=== PATIENT | male | born 1950 | race Caucasian/White ===

== ENCOUNTER → 2017-04-14 | Outpatient (CLI) | payer OTHER ==
[~2017-04-14] VITALS: Ht 175.3 cm; Wt 81.6 kg
[~2017-04-14] MED LIST: MULTIVITAMINS PO; NABUMETONE 500500 M1 PO; NORCO 7.5-3251 EACH PO; SINEMET 25-1001 EAC1 PO
--- NOTE | ~2017-04-14 | HPC ---
[facility] [place] [address] PAIN MANAGEMENT CONSULTATION Name: GRISEL MCCONNELL Room #: REG [facility] LeticiaJovannaBrianaJovanna#: [id number] Admission: 04/14/17 Attend Phys: Clint López DO Discharge: Date of : 50 Report #: [id number] THIS REPORT FOR: //name// CC: Alvarado Levy DO Clint López PAIN CLINIC CONSULT The patient is a very pleasant 66-year-old gentleman seen in consultation at the request of Dr. Levy for evaluation of pain primarily low back, bilateral legs. The patient notes he fell "a couple of years ago" with exacerbation of back pain. Pain has been present since 2014. Starting to get paresthesia in his lateral thighs down to his toes. He completed a course of physical therapy. He is continuing to do exercises at home. He is taking bzes-wmw-ujwthng anti-inflammatory medications (Motrin) with nominal relief. Recently started on hydrocodone with some efficacy, but notes pain remains steady, aching, rating it a 7-9 on a VAS. Notes pain is exacerbated whenever he moves from a vertical to horizontal position. REVIEW OF SYSTEMS: Complete review of systems attached to chart and was gone over with the patient. He is . He does not smoke, drink alcohol to excess. Showed remarkably good health. He takes multivitamins. He had a colon polyp removed in 1999. He was diagnosed with Parkinson's in September. He was started on Sinemet and that is really the only other medication he takes. 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 Pain impact score averages about 4.8 for all indices queried. PHYSICAL EXAMINATION: Reveals a 5 feet 9 inches, 180 pounds gentleman, BMI is 26.6 kilograms per meter squared. Blood pressure is 130/80, pulse 66, respirations 16. Cranial nerves 2-12 are grossly intact. Pupils are equal and reactive to light and accommodation. Extraocular muscles are intact. He does have a little parkinsonian tremor, which gets worse with intention. Has moderate thoracic kyphosis. Upper extremity strength is symmetric. Rises from chair using armrest. Gait is nominally ataxic. Lumbar flexion is limited to 45 degrees. Diffuse low back tenderness at L4-L5 area. Slight decreased left hip flexion and lower extremity extension strength compared to the right. Positive straight leg raise on the left at 30 degrees. Patellar and Achilles reflexes are generally preserved. Pain is somewhat exacerbated with rotation. Has some cogwheel rigidity in the lower extremities on straight leg raise testing. Skin integument is intact. DIAGNOSTIC STUDIES: Include MRI of the lumbar spine from 12/09/2016 noting left lateral HNP at L3-L4, small disk protrusion at L5-S1, the latter appears to be [address] [address] PAIN MANAGEMENT CONSULTATION Name: GRISEL MCCONNELL Room #: REG [facility]#: [id number] Admission: 04/14/17 Attend Phys: Clint López DO Discharge: Date of : 50 Report #: [id number] clinically inconsequential. ASSESSMENT: Symptomatic lumbar radiculopathy in a gentleman with recent diagnosis of Parkinson's. RECOMMENDATIONS: 1. Epidural injection at L3-L4 midline, will seek authorization for same. 2. We will start the patient on nabumetone 500 mg b.i.d. Thank you for allowing me to participate in the patient's care, we will seek authorization for epidural injection under fluoroscopy given failure of conservative therapy including lorw-bia-brsgyhj nonsteroidal anti-inflammatory medications, appropriate physical therapy (ongoing), diagnostic findings of neural tensioning correlating with left L3-L4 lateral annular tear. <ELECTRONICALLY SIGNED> By: Clint López DO 04/15/17 0657 1517 05 Clint Lpóez DO /nt
[2017-04-14 09:50] VITALS: BP 130/80
== END | disposition home or self-care (01) ==
LOC: PAIN 07:02
DX: M54.16 Radiculopathy, lumbar region (principal); G89.29 Other chronic pain; G20 Parkinson's disease; Z87.19 Personal history of other diseases of the digestive system; Z98.890 Other specified postprocedural states

== ENCOUNTER → 2017-04-22 | Outpatient (CLI) | payer OTHER ==
[~2017-04-22] VITALS: Ht 175.3 cm; Wt 79.1 kg
--- NOTE | ~2017-04-22 | HPC ---
[facility] [address] [facility] [place] [address] PAIN MANAGEMENT CONSULTATION Name: GRISEL MCCONNELL [facility] [id number] Admission: 04/22/17 Attend Phys: Clint López DO Discharge: Date of : 50 Report #: [id number] THIS REPORT FOR: //name// CC: Alvarado López The patient is a pleasant 66-year-old gentleman, prior seen in consultation on 04/14/2017, diagnosed with symptomatic lumbar radiculopathy. The patient was started on meloxicam 7.5 mg b.i.d. We sought authorization for epidural injection under fluoroscopy. He reports to the pain clinic today for that injection. He notes pain continues at 6 on a VAS, primarily mid back, bilateral legs. ASSESSMENT: Symptomatic lumbar radiculopathy. PROCEDURE: Lumbar epidural injection under fluoroscopy. PROCEDURE NOTE: After both written and informed consent to include risk of spinal cord damage, increased pain, weakness and dural puncture, the patient was taken to the fluoroscopy suite, placed in the prone position. After sterile prep and drape, a skin wheal with lidocaine was raised. A 22-gauge epidural Tuohy needle was inserted in the midline at L3-L4 with good loss to resistance. Negative aspiration for cerebrospinal fluid or blood was noted. Then 1 mL of Omnipaque under biplanar fluoroscopy showed good spread within the epidural space. This was followed with 80 mg of triamcinolone plus 1 mL of 1.5% preservative-free Xylocaine, 0.5 mL Xylocaine was then injected to flush the needle; it was removed. The patient was monitored for an appropriate period of time and discharged in good and stable condition. <ELECTRONICALLY SIGNED> By: Clint López DO 04/25/17 0742 1150 1339 Clint López DO /nt
[2017-04-22 14:20] VITALS: BP 145/93
== END ==
LOC: PAIN 07:17
DX: M54.16 Radiculopathy, lumbar region (principal)

== ENCOUNTER → 2017-05-26 | Outpatient (CLI) | payer OTHER ==
[~2017-05-26] VITALS: Ht 175.3 cm; Wt 75.8 kg
[~2017-05-26] MED LIST changes: +PROSCAR 5MG TABL5 MG PO
--- NOTE | ~2017-05-26 | HPC ---
[facility] [place] [address] PAIN MANAGEMENT CONSULTATION Name: GRISEL MCCONNELL Room #: REG [facility]#: [id number] Admission: 05/26/17 Attend Phys: Clint López DO Discharge: Date of : 50 Report #: [id number] THIS REPORT FOR: //name// CC: Alvarado López HISTORY OF PRESENT ILLNESS: The patient was a very pleasant 66-year-old gentleman being treated for symptomatic lumbar radiculopathy, his comorbidity of Parkinson's disease. Last seen in pain clinic on 05/12/2017. We had given him a single epidural injection on 04/22/2017. The patient notes 60% overall ongoing improvement of pain, but still has pain that interferes with function. He rates the pain 2-3 on a VAS, exacerbated with standing and walking. To his credit, he continues to do physical therapy. PHYSICAL EXAMINATION: Does show a 66-year-old gentleman, BMI is 24.9 kilograms per meter squared. Vital signs are stable as noted on the EMR with modest hypertension at 147/93. Rises from chair using armrest, modestly antalgic gait. Right hip flexion is diminished in strength compared to the left, about 3/5 versus 4/5. Lumbar flexion is limited to 80 degrees. He does have a minimally antalgic gait. Patellar reflex is diminished on the right compared to the left. Straight leg raise is nominally positive on the right as well. ASSESSMENT AND RECOMMENDATION: 1. The patient incidentally notes that he is having trouble sleeping, though on further questioning it appears that it is not because of pain or anxiety, he simply wakes up to urinate. He usually did that 1 time a night, he has starting to do this 3-4 times a night. He has no history of diabetes, we do know that steroid injections can increase blood sugar in patients who do have some glucose intolerance. I think this is simply a manifestation of some benign prostatic hypertrophy, appropriate for age at 66. I told him I will trial a 30-day course of finasteride at 5 mg nightly. If this affords some improvement in his nocturia and when he completes the course in 30 days if he notes return of nocturia, I will ask him to follow up with Dr. Alvarado Levy for consideration for continuing the finasteride and likely further evaluation into prostate anatomy. Prescription generated for finasteride as noted above. I also did take the liberty of renewing nabumetone 5 mg b.i.d., 60 tablets, 1 refill and a short course of hydrocodone for pain, 7.5 mg 1 tablet 2-3 times a day as needed for pain, limit 45 tablets. Thank you for allowing me to participate in the patient's care. I will keep you abreast of his progress. 2. Acute exacerbation of lumbar radiculopathy with incremental improvement following one epidural injection. Recommendation: Repeat epidural injection [address] [address] PAIN MANAGEMENT CONSULTATION Name: JAYESHGRISEL Room #: REG [facility]#: [id number] Admission: 05/26/17 Attend Phys: Clint López DO Discharge: Date of : 50 Report #: [id number] under fluoroscopy today. PROCEDURE: Lumbar epidural injection under fluoroscopy. PROCEDURE: Lumbar epidural steroid injection. PROCEDURE NOTE: After both written and informed consent to include risk of spinal cord damage, increased pain, weakness and dural puncture, the patient was taken to the fluoroscopy suite, placed in the prone position. After sterile prep and drape, a skin wheal with lidocaine was raised. A 22-gauge epidural Tuohy needle was inserted in the midline at L3-L4 with good loss to resistance. Negative aspiration for cerebrospinal fluid or blood was noted. Then 1 mL of Omnipaque under biplanar fluoroscopy showed good spread within the epidural space. This was followed with 80 mg of triamcinolone plus 1 mL of 1.5% preservative-free Xylocaine, 0.5 mL Xylocaine was then injected to flush the needle; it was removed. The patient was monitored for an appropriate period of time and discharged in good and stable condition. <ELECTRONICALLY SIGNED> By: Clint López DO 05/30/17 1401 1250 2133 Clint López DO /nt
[2017-05-26 11:05] VITALS: BP 133/88
== END ==
LOC: PAIN 07:14
DX: M54.16 Radiculopathy, lumbar region (principal); G20 Parkinson's disease; I10 Essential (primary) hypertension

== ENCOUNTER → 2017-09-30 | Outpatient (CLI) | payer OTHER ==
[~2017-09-30] VITALS: Ht 175.3 cm; Wt 74.8 kg
[~2017-09-30] MED LIST changes: +CALCIUM 500 +1 EAC5 PO; +CIALIS5 MG PO; +SLEEP AID50 MG PO; +STOOL SOFTENER100 M1 PO; +VITAMIN C500 M1 PO; +VITAMIN E400 UNIT PO
--- NOTE | ~2017-09-30 | P ---
[facility] [place] [address] [place] [address] PROCEDURE REPORT Name: GRISEL MCCONNELL Room #: REG [facility]#: [id number] Admission: 09/30/17 Attend Phys: Carrington Fuller Discharge: Date of : 50 Report #: [id number] THIS REPORT FOR: //name// CC: Carrington Levy DO DATE OF SERVICE: 09/30/2017 PROCEDURE PERFORMED: Colonoscopy with polypectomies. HISTORY OF PRESENT ILLNESS: The patient is a 67-year-old male who apparently had colon polyps in the past. Last colonoscopy reportedly was 5 years ago and negative. He denies any symptoms. No family history of colon cancer. DESCRIPTION OF PROCEDURE: The risks and benefits of the procedure were explained to the patient, those risks including but not limited to bleeding, perforation, and the risk of sedation. He understood these risks and gave informed consent. Sedation was given using propofol per anesthesia. Next, a digital rectal exam was initially performed, which was normal. Next, using a standard Fujinon colonoscope, the scope was placed in the patient's anus and advanced under direct vision to the cecum. The overall prep was good in the cecum. There was a 6-mm sessile polyp. This was removed by snare cautery, otherwise normal. The ileocecal valve was normal. Ascending, transverse, descending and sigmoid colon were all normal. The rectal mucosa was normal. On retroflexion, no abnormalities were noted. The scope was then withdrawn and the procedure terminated. The patient tolerated the procedure well. IMPRESSION: 1. Cecal polyp. 2. Otherwise, normal colonoscopy. RECOMMENDATIONS: 1. Await biopsy results. 2. Repeat colonoscopy in 5 years. Thank you for allowing me to participate in his care. <ELECTRONICALLY SIGNED> By: Carrington Murray MD 10/07/17 0804 1041 1138 Carrington Murray MD /nt
--- NOTE | ~2017-09-30 | S ---
[facility] [place] [address] SURGICAL PATH RPT PROCEDURE Name: GRISEL CASTRO Room #: REG [facility] LeticiaAaliyah.#: [id number] Admission: 09/30/17 Date of : 50 Discharge: Report #: [id number] Path Case #: [id number] PATHOLOGY REPORT COLLECTION DATE: 09/30/2017 RECEIVED DATE: 09/30/2017 SUBMITTING PHYS: Dr. Carrington Murray OTHER PHYS: Dr. Alvarado Levy SPECIMEN(S) RECEIVED: A.Cecal polyp * * * * * * * * * * * * FINAL DIAGNOSIS: "Cecal polyp," biopsy: - Tubular adenoma; no high-grade dysplasia. (CLW:mgr; 10/03/2017) PATHOLOGIST: Lisa Baptiste M.D. REPORT ELECTRONICALLY SIGNED BY: Lisa Baptiste M.D. DATE/TIME: 10/03/2017 15:57 * * * * * * * * * * * * GROSS PATHOLOGY: Received in formalin labeled "Grisel Castro, cecal polypectomy," are two segments of lyman soft tissue measuring 1.0 x 0.9 x 0.4 cm in aggregate dimensions and ranging from 0.5 to 0.9 cm in maximum dimension. The specimen is submitted entirely in cassette A1. (CAA; 09/30/2017) CLINICAL HISTORY: History of colon polyps INITIAL CPT CODE(S): A; 93158 Professional services performed by [facility] at [facility] [address]ST[address]mar[address] DinhJovanna, [place] [address] Technical services performed by [facility] at [address] [place] [address], [address], [place] [address]. [facility] [address] [place] [address] SURGICAL PATH RPT PROCEDURE Name: GRISEL CASTRO Room #: REG [facility]#: [id number] Admission: 09/30/17 Date of : 50 Discharge: Report #: [id number] Path Case #: [id number] [address] PHONE: [phone] DIRECTOR: Kingston Courtney M.D. * * * END OF REPORT * * *
== END | disposition home or self-care (01) ==
LOC: GI 07:56
DX: Z09 Encounter for follow-up examination after completed treatment for conditions other than malignant neoplasm (principal); Z86.010 Personal history of colon polyps; D12.0 Benign neoplasm of cecum; G20 Parkinson's disease; Z87.891 Personal history of nicotine dependence; Z98.890 Other specified postprocedural states; Z79.891 Long term (current) use of opiate analgesic
CPT/HCPCS: 62110; 62900

== ENCOUNTER → 2017-11-17 | Outpatient (CLI) | payer OTHER ==
[~2017-11-17] VITALS: Ht 175.3 cm; Wt 77.5 kg
--- NOTE | ~2017-11-17 | HPC ---
[address] [address] PAIN MANAGEMENT CONSULTATION Name: GRISEL MCCONNELL [facility] #: [facility] [id number] Admission: 11/17/17 Attend Phys: Clint López DO Discharge: Date of : 50 Report #: [id number] THIS REPORT FOR: //name// CC: Alvarado López DATE OF SERVICE: 11/17/2017 The patient is a 67-year-old gentleman, prior seen in the Pain Clinic on 11/07/2017. The patient was diagnosed with symptomatic lumbar spondylosis without myelopathy, lumbosacral spondylosis without myelopathy. We sought authorization for bilateral L4-L5, L5-S1 facet joint injection under fluoroscopy. The patient returns to the Pain Clinic today for facet injection, has ongoing pain in the low back at the level of the iliac crest and below. Pain is exacerbated by side bending and rotation. Rates subjective pain score 4 on a VAS. ASSESSMENT: Symptomatic lumbar spondylosis without myelopathy, lumbosacral spondylosis without myelopathy. PROCEDURE: Bilateral L4-L5 and L5-S1 facet joint injections. PROCEDURE NOTE: After written informed consent was obtained, the patient was taken to the fluoroscopy suite and placed in prone position. After sterile prep and drape, skin wheal was raised. A 22-gauge stylet needle was placed to contact the inferior aspect of the left L4-L5 and left L5-S1 facet joint. AP and lateral projections showed good needle placement. A 20 mg triamcinolone plus 1 mL of 0.5% preservative-free bupivacaine was injected at each site. Needle was removed. C-arm was turned obliquely to the right and procedure was repeated in a mirror fashion. After all four needles removed, patient was allowed to ambulate to recovery room, monitored for an appropriate period of time. Fluoroscopy time was approximately 13 seconds. The patient monitored for an appropriate period of time, discharged in good and stable condition. Please note the pain was absent on discharge. Follow up in 2 weeks to evaluate efficacy. If he has short term relief, we will consider medial branch dorsal rami diagnostic block in consideration of RFL of same (L3, L4, L5 medial branch dorsal rami respectively). <ELECTRONICALLY SIGNED> By: Clint López DO 11/21/17 0711 1230 2140 Clint López DO /nt
[2017-11-17 09:41] VITALS: BP 127/83
== END | disposition home or self-care (01) ==
LOC: PAIN 05:36
DX: M47.816 Spondylosis without myelopathy or radiculopathy, lumbar region (principal); M47.817 Spondylosis without myelopathy or radiculopathy, lumbosacral region; G89.29 Other chronic pain; Z87.891 Personal history of nicotine dependence; Z79.891 Long term (current) use of opiate analgesic

== ENCOUNTER → 2018-08-07 | Outpatient (CLI) | payer OTHER | LOC: MRI 09:26 | DX: M47.817 Spondylosis without myelopathy or radiculopathy, lumbosacral region (principal); M51.27 Other intervertebral disc displacement, lumbosacral region; M51.37 Other intervertebral disc degeneration, lumbosacral region; M48.061 Spinal stenosis, lumbar region without neurogenic claudication; N28.1 Cyst of kidney, acquired; R60.0 Localized edema ==

== ENCOUNTER → 2018-09-06 | Outpatient (CLI) | payer OTHER ==
[~2018-09-06] VITALS: Ht 175.3 cm; Wt 74.6 kg
[~2018-09-06] MED LIST changes: +ASPIR 8181 MG PO; -CALCIUM 500 +1 EAC5 PO; +CALCIUM PO; +COLACE100 MG PO; +UNISOM50 MG PO
--- NOTE | ~2018-09-06 | HPC ---
[facility] [place] [address] PAIN MANAGEMENT CONSULTATION Name: GRISEL MCCONNELL Room #: REG [facility]#: [id number] Admission: 09/06/18 ������������������ Attend Phys: Leroy Mccray MD Discharge: ������������������ Date of : 50 Report #: [id number] THIS REPORT FOR: //name// CC: Alvarado Mccray DATE OF SERVICE: 09/06/2018 CHIEF COMPLAINT: Pain in the back. FOLLOWUP HISTORY: The patient is a 68-year-old gentleman who has been followed in the pain clinic by Leelee López. This is my first visit with the patient. He returns today with complaint of pain and discomfort in his low back area. He does have a history of Parkinson's disease. Rates his pain as a 3/10. It involves his low back. He describes it as aching. Pain is exacerbated with getting up from a chair. Standing for a prolonged period of time is in one place is problematic. Has used medications as well as heat. He finds that hydrocodone has been helpful. Has used nonsteroidal anti-inflammatory medications. Has found that epidural steroid injections in the past have been beneficial. He has spondylosis of the lumbar spine. Pain is exacerbated by bending and rotation. Has noted a 60% improvement with in the back after epidural steroid injections. ALLERGIES: No known drug allergies. MEDICATIONS: Diphenhydramine 50 mg at bedtime, Colace 100 mg, hydrocodone 7.5/325 one p.o. every 6 hours p.r.n., Sinemet 25/100 t.i.d., aspirin 81 mg, vitamin C 500 mg, calcium 750 mg, vitamin E 400 units, multivitamin. PAST MEDICAL HISTORY: Parkinson's diagnosed about a year and a half ago, colon polyps. PAST SURGICAL HISTORY: Colonoscopies in 2012 and 2007. 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 REVIEW OF SYSTEMS: Generally good health, recent weight loss, decreased appetite, wears glasses, numbness and tingling, tremors, memory loss, confusion. LABORATORY DATA: MRI dated on 08/07/2018: 1. L2-L3, there is progressive degenerative disks loss in vertebral body endplate degenerative changes. Moderate bilateral posterior facet degenerative changes are present without significant spinal canal stenosis or neural foraminal narrowing. 2. L3-L4, there is a generalized disk bulge, which is slightly more eccentric [address] [address] PAIN MANAGEMENT CONSULTATION Name: JAYESHGRISEL [facility] [id number] Admission: 09/06/18 ������������������ Attend Phys: Leroy Mccray MD Discharge: ������������������ Date of : 50 Report #: [id number] toward the right. This appears very similar to the prior study. There is mild right lateral recess narrowing; however, no significant central canal stenosis or definite neural foraminal narrowing. 3. L4-L5, there is interval development of an acute right-sided L4 inferior plates Schmorl node with surrounding edema. No central spinal stenosis or neural foraminal narrowing. Moderate posterior facet degenerative changes. 4. L5-S1, there is a broad-based central disk protrusion with moderate bilateral posterior facet degenerative changes without significant spinal stenosis or neural foraminal narrowing. This is similar to the prior study. IMPRESSION: There has been progressive of disease at the L2-L3 and L4-L5 levels. PAIN CLINIC ASSESSMENT/PQRS: 1. History of osteoarthritis. The patient has some arthritic changes in his knees as well as in the lower spine. He has not been treated for rheumatoid arthritis. 2. Height 5 feet 9 inches. Weight 166 pounds, BMI is 24.5. 3. Vital signs: Blood pressure 123/78, pulse 55, respiratory rate 16, room air saturation is 98%. Pain intensity 3/10. 4. Fall risk. The patient has not fallen in the last 3 months. 5. Blood thinner. The patient is not on a blood thinning medication. 6. Hypertension. The patient has not been treated for hypertension. 7. Opioid greater than 6 weeks. The patient received opioid medications from his primary physician. 8. Risk assessment tool, low for opioid use, 0/3. 9. Functional assessment tool . 10. Recreational drug use: The patient denies. 11. Tobacco: The patient is a former smoker, has not smoked for many years. 12. Alcohol: The patient drinks alcoholic beverages 1-2 alcoholic beverages per week. PHYSICAL EXAMINATION: GENERAL: The patient is a well-developed, well-nourished white male. Appears his stated age. He is alert and oriented x 3. His affect is appropriate, somewhat stoic appearing. Findings consistent with Parkinson's history. NECK: Without bruits. CHEST: Clear to auscultation. HEART: Regular rate. ABDOMEN: Nontender. EXTREMITIES: Upper extremity muscle strength is judged to be 4+/5 for the major muscle groups in the upper extremity. The patient without significant scoliosis, kyphosis or lordosis. Complains of pain and discomfort in the mid portion of his back with some pain radiating down into the sacral area. The patient has had a history of lumbar radicular pain in the past and improved with epidural steroid injections. Lower extremity muscle strength is judged to be [address] [address] PAIN MANAGEMENT CONSULTATION Name: GRISEL MCCONNELL Room #: REG [facility]#: [id number] Admission: 09/06/18 ������������������ Attend Phys: Leroy Mccray MD Discharge: ������������������ Date of : 50 Report #: [id number] 5-/5 for the major muscle groups. The patient moves slow with a guarded franny. Movement consistent with parkinsonian history. The patient uses hands go from a sitting to a standing position. Ambulates slowly. IMPRESSION: Chronic low back pain with history of lumbar radicular pain. Parkinson's diagnosed about a year and a half ago, colon polyps. RECOMMENDATIONS: We discussed treatment options with the patient. The patient has had a history of back pain. He has undergone physical therapy for 2 months. Pain continued. He has undergone facet joint injections with benefit. He has undergone epidural steroid injections with benefit. Notes increased pain when going from a sitting to a standing position. Moves slowly and with findings consistent with parkinsonian disease. We reviewed the patient's MRI with him in detail. A model was used to indicate the area of probable pathology. The patient states that he understands. The patient has pain in the back area. We will proceed with an epidural steroid injection in the L2-L3 area. This is an area where the patient does complain of some pain and discomfort as well as history of lumbar radicular pain. PROCEDURE NOTE: The patient was taken to the procedure area. He assisted in getting on the examination table. A pillow was placed under his abdomen. Fluoroscopy using anterior, posterior as well as lateral viewing were implemented. At the L2-L3 area, 0.25% bupivacaine was infiltrated. A 17-gauge Tuohy with loss of resistance technique was used to gain access to the epidural space. There was no CSF, heme or paresthesia. A total of 80 mg Depo-Medrol, 40 mg triamcinolone and 2 mL of 0.25% bupivacaine was injected. Total of 10 mL fluoroscopy time was used. The patient remained in the pain clinic for an appropriate amount of time. He will follow up in the future as needed. We would like to thank you for letting us to participate in his care. We hope he continues to improve. ��������������������������������������������� ���������������������������������������� By: ��������������������������������������������� 1523 1802 Leroy Mccray MD /MISTY
[2018-09-06 10:41] VITALS: BP 128/78
--- NOTE | 2018-09-06 11:05 | NUR ---
Pain Clinic Assessment: 1. History of Osteoarthritis: SPINE KNEES History of Rheumatoid Arthritis: Not Applicable 2. Height: 5 ft. 9 in. 175.3 cm. Weight: 164.4 lb. oz. 74.571 kg. Patient's BMI: 24.3 3. Vital Signs: BP: 128/78 Pulse: 60 Resp: 14 Temp: 02 Sat: 99 ECG Mon: 4. Pain Intensity: 3 NOW 8 GET OUT OF CAR 5. Fall Risk: Dizziness: N Needs help standing or walking: N Fallen in the last 3 months: N Fall risk comments: 6. Patient on Blood Thinner: None 7. History of Hypertension: N 8. Opioid Therapy greater than 6 weeks: N Opiate Contract Signed: 9. Risk Assessment Tool Provided: LOW RISK 0/3 10. Functional Assessment Tool: 11. Recreational Drug Use: Never Drug Type: Tobacco Use: Former Smoker Tobacco Type: Amount or Packs/day: How Many Years: Alcohol Use: Yes Frequency: Quant:
== END | disposition home or self-care (01) ==
LOC: PAIN 08-30 07:45
DX: M54.16 Radiculopathy, lumbar region (principal); G89.29 Other chronic pain; G20 Parkinson's disease; Z86.010 Personal history of colon polyps; Z79.891 Long term (current) use of opiate analgesic; Z79.82 Long term (current) use of aspirin; Z87.891 Personal history of nicotine dependence; Z87.19 Personal history of other diseases of the digestive system; Z98.890 Other specified postprocedural states

== ENCOUNTER → 2019-01-19 | Outpatient (CLI) | payer OTHER ==
[~2019-01-19] VITALS: Ht 175.3 cm; Wt 70.8 kg
--- NOTE | ~2019-01-19 | HPC ---
[facility] [place] [address] PAIN MANAGEMENT CONSULTATION Name: GRISEL MCCONNELL Room #: REG ORI DudleyJovanna#: [id number] Admission: 01/19/19 ������������������ Attend Phys: Leroy Mccray MD Discharge: ������������������ Date of : 50 Report #: [id number] THIS REPORT FOR: //name// CC: Alvarado Mccray DATE OF SERVICE: 01/19/2019 CHIEF COMPLAINT: Back pain. FOLLOWUP HISTORY: The patient is a 68-year-old gentleman who has been followed in the pain clinic by Dr. Clint López. This is my first time seeing the gentleman. He has been seen in the past because of lumbosacral and spondylosis without myelopathy. He has in the past undergone bilateral L4-L5 and L5-S1 facet joint injections. He has had chronic pain since 2014. Notes that oftentimes his pain is in the upper back area. Describes as steady, aching. Notes some increased pain with motion and activity. After his fall in 2014, he completed a course of physical therapy. States that he continues to do exercises at home. Has used [id number] nonsteroidal anti-inflammatory medications. ALLERGIES: No known drug allergies. PAST MEDICAL HISTORY: Colon problems. PAST SURGICAL HISTORY: Colonoscopies 2012 and 2007, Parkinson's disease 09/2016. SOCIAL HISTORY: He is a retired college advisor. He is not working at this juncture, he retired in 06/2009. REVIEW OF SYSTEMS: Weight change, fevers, fatigue, weakness, wears glasses, loss of appetite, constipation, numbness and tingling sensation, tremors, memory loss, confusion. LABORATORY DATA: MRI of the lumbar spine dated 08/07/2018: 1. L2-L3, there is progressive degenerative disk space loss in vertebral body endplate degenerative changes. Moderate bilateral posterior facet degenerative changes are present without significant central spinal stenosis or neural foraminal narrowing. 2. L3-L4, there is a generalized disk bulge, which is slightly more eccentric toward the right. This appears very similar to the prior study. There is mild right lateral recess narrowing; however, no significant central spinal stenosis or definitive foraminal narrowing. 3. At L4-L5, there has been interval development of an acute right-sided left inferior plate Schmorl node with surrounding edema. No central spinal stenosis [address] [address] PAIN MANAGEMENT CONSULTATION Name: JAYESHGRISEL Room #: REG [facility] Nahun#: [id number] Admission: 01/19/19 ������������������ Attend Phys: Leroy Mccray MD Discharge: ������������������ Date of : 50 Report #: [id number] or neural foraminal narrowing. Moderate posterior facet degenerative change. 4. At L5-S1, there is a broad-based disk central protrusion with moderate bilateral posterior facet degenerative changes without central spinal stenosis or neural foraminal narrowing. This is similar to prior study. PAIN CLINIC ASSESSMENT AND PQRS: 1. History of osteoarthritis. This involves his spine and knees. He has not been treated for rheumatoid arthritis. 2. Height 5 feet 9 inches, weight 156 pounds, BMI is 23. 3. VITAL SIGNS: Blood pressure 128/83, pulse 63, respiratory rate 16, room air saturation is 100%. Pain intensity 7/10. 4. Fall history: The patient has not fallen in the last 3 months. 5. Blood thinner. He is not on a blood thinning medication. 6. Hypertension. The patient has not been treated for hypertension. 7. Opioids greater than 6 weeks. The patient is not receiving opioid medications on a regular basis. 8. Risk assessment low for opioid use. 9. Functional assessment tool . 10. Recreational drug use. The patient denies use of recreational drugs. 11. Tobacco: The patient has never smoked. 12. Alcohol. The patient drinks 2-3 alcoholic beverages weekly. PHYSICAL EXAMINATION: GENERAL: The patient is a well-developed, well-nourished white male. Appears his stated age. He is alert and oriented x 3. He is somewhat lacking expression. This is consistent with a parkinsonian facies. NECK: Without adenopathy or JVD. The patient does complain of pain and discomfort in the rhomboid areas on his right side. Palpation at the T3-T4 area and T4-T5 does reproduce pain and discomfort similar to that which he is complaining of today. HEART: Regular rate. ABDOMEN: Nontender. Bowel sounds are present. EXTREMITIES: Upper extremity muscle strength is judged to be 4+/5 for the major muscle groups in the upper extremity. The patient is without significant scoliosis or lordosis. He has a significant amount of kyphosis. Lower extremity muscle strength is judged to be 4+/5 for the major muscle groups of the lower extremity. The patient walks in a slow and somewhat unsteady gait. IMPRESSION: 1. Myofascial pain involving the mid back area. 2. Colon problems. RECOMMENDATIONS: We discussed treatment options with the patient. In the past, he has undergone trigger point injections and found them beneficial. Palpation in the upper back area near the T3, T4, T5 areas do reproduce the pain and discomfort for which he is complaining. We have discussed the risks and [address] [address] PAIN MANAGEMENT CONSULTATION Name: GRISEL MCCONNELL [facility] [id number] Admission: 01/19/19 ������������������ Attend Phys: Leroy Mccray MD Discharge: ������������������ Date of : 50 Report #: [id number] benefits of trigger point injections. Trigger points in the upper thoracic area can cause a pneumothorax, possibility of bleeding, worsening of pain, no improvement in pain. We explained to the patient on pneumothorax require him to be hospitalized with chest tubes for 5 to 7 days. The patient elects to proceed. PROCEDURE NOTE: The patient was placed in the sitting position perpendicular to the bed. A chair was placed under his feet. His back was sterilely prepped with a chlorhexidine solution and allowed to dry. At the T3 interspace, a 25-gauge needle was advanced into the interspinous area. The patient states this did reproduce a component of his pain. Aspiration was negative. A total of 5 mL of 0.5% bupivacaine and 40 mg of triamcinolone was injected. The patient states that this decrease the pain and discomfort in this area. The patient had a second trigger point in the left T4-5 area near the rhomboids. Palpation of the rhomboid area reproduces discomfort. After the trigger point in the rhomboid was noted on the left side, a 25-gauge needle was then advanced into the area. Aspiration did not reveal bubbles. A total of 5 mL of 0.5% bupivacaine and 40 mg of triamcinolone was injected in the second area. The patient tolerated the 2 trigger points well. Pain decreased to 0 at the time of discharge. He will follow up in the future as needed. We would like to thank you for letting us participate in his care. We hope he continues to improve. ��������������������������������������������� ���������������������������������������� By: ��������������������������������������������� [id number] Leroy Mccray MD /PMT
[2019-01-19 08:47] VITALS: BP 128/83
--- NOTE | 2019-01-19 09:00 | NUR ---
Pain Clinic Assessment: 1. History of Osteoarthritis: SPINE KNEES History of Rheumatoid Arthritis: Not Applicable 2. Height: 5 ft. 9 in. 175.3 cm. Weight: 156.0 lb. oz. 70.761 kg. Patient's BMI: 23.0 3. Vital Signs: BP: 128/83 Pulse: 62 Resp: 16 Temp: 02 Sat: 100 ECG Mon: 4. Pain Intensity: 7 5. Fall Risk: Dizziness: N Needs help standing or walking: N Fallen in the last 3 months: N Fall risk comments: 6. Patient on Blood Thinner: None 7. History of Hypertension: N 8. Opioid Therapy greater than 6 weeks: N Opiate Contract Signed: 9. Risk Assessment Tool Provided: LOW RISK 0/3 10. Functional Assessment Tool: 11. Recreational Drug Use: Never Drug Type: Tobacco Use: Never Smoker Tobacco Type: Amount or Packs/day: How Many Years: Alcohol Use: Yes Frequency: Weekly Quant: 2-3
== END | disposition home or self-care (01) ==
LOC: PAIN 06:41
DX: M79.18 Myalgia, other site (principal); G89.29 Other chronic pain; G20 Parkinson's disease; Z98.890 Other specified postprocedural states

== ENCOUNTER → 2019-10-05 | Outpatient (CLI) | payer OTHER ==
[~2019-10-05] VITALS: Ht 175.3 cm; Wt 70.3 kg
[~2019-10-05] MED LIST changes: +ARICEPT10 M1 PO; +MEDROLDOSEPACK PO; +PERCOCET 5-3251 EACH PO; +RASAGILINE MES0.5 MG PO; +VOLTAREN GEL 1100 G1 TOP
[2019-10-05 12:48] VITALS: BP 129/79
--- NOTE | 2019-10-05 13:01 | NUR ---
Pain Clinic Assessment: 1. History of Osteoarthritis: SPINE KNEES History of Rheumatoid Arthritis: Not Applicable 2. Height: 5 ft. 9 in. 175.3 cm. Weight: 155.0 lb. oz. 70.308 kg. Patient's BMI: 22.9 3. Vital Signs: BP: 129/79 Pulse: 62 Resp: 16 Temp: 02 Sat: 100 ECG Mon: 4. Pain Intensity: 7 5. Fall Risk: Dizziness: N Needs help standing or walking: N Fallen in the last 3 months: N Fall risk comments: 6. Patient on Blood Thinner: None 7. History of Hypertension: N 8. Opioid Therapy greater than 6 weeks: Y Opiate Contract Signed: 9. Risk Assessment Tool Provided: LOW RISK 0/3 10. Functional Assessment Tool: 11. Recreational Drug Use: Never Drug Type: Tobacco Use: Never Smoker Tobacco Type: Amount or Packs/day: How Many Years: Alcohol Use: Yes Frequency: Special Occasions Quant: 1
--- NOTE | 2019-10-24 15:15 | HPC ---
[facility] [place] [address] PAIN MANAGEMENT CONSULTATION Name: GRISEL MCCONNELL Room #: REG [facility] Octavia#: [id number] Admission: 10/05/19 Attend Phys: Leroy Mccray MD Discharge: Date of : 50 Report #: [id number] THIS REPORT FOR: cc: Alvarado Levy,Leroy Chang MD ~ CC: Alvarado Mccray DATE OF SERVICE: 10/22/2019 CHIEF COMPLAINT: Pain in the neck between the shoulder blades and down on the right side of the ribs. HISTORY: The patient is a 69-year-old gentleman who has been seen in the pain clinic in the past because of chronic pain in the low back area. He has had pain and discomfort in the lumbosacral area. He suffers from spondylosis. He has undergone epidural steroid injections in the L4-L5 and L5-S1 facet areas. He has been experiencing chronic pain since 2015. He returns to the pain clinic today with pain in the upper back area. He has been experiencing pain between his shoulder blades. He complains of some pain that radiates down and around to the front of his right side in the rib area and in the area of his waistline. He denies any new trauma. He describes the pain as a 7/10. It is exacerbated with coughing, sneezing and certain movements. It can be reproduced somewhat with deep breathing. ALLERGIES: No known drug allergies. CURRENT MEDICATIONS: Rasagiline 0.5 mg, Aricept 10 mg, Colace 200 mg at bedtime, hydrocodone 7.5 mg, carbidopa/levodopa 25/100, multivitamins. PAIN CLINIC ASSESSMENT AND PQRS: 1. Osteoarthritic changes in the spine as well as in his knees. The patient is not being treated for rheumatoid arthritis. 2. Height 5 feet 9 inches, weight 155 pounds, BMI is 22.9. 3. Vital Signs: Blood pressure 129/79, pulse 62, respiratory rate 16, room air saturation is 100%. 4. Pain intensity 01/17. 5. Fall history: The patient has not fallen in the last 3 months. 6. Blood thinner. The patient is not on a blood thinning medication. 7. Hypertension. The patient is not being treated for hypertension. 8. Opioids greater than 6 weeks, low for opioid use. 9. Functional assessment tool . 10. Recreational drug use: The patient denies. 11. Tobacco: The patient has never smoked. 12. Alcohol: The patient occasionally drinks alcoholic beverages. [address] [address] PAIN MANAGEMENT CONSULTATION Name: GABRIELA MCCONNELLANE Bindu Room #: REG [facility]#: [id number] Admission: 10/05/19 Attend Phys: Leroy Mccray MD Discharge: Date of : 50 Report #: [id number] PHYSICAL EXAMINATION: GENERAL: The patient is a well-developed, well-nourished white male. Appears his stated age. He is alert and oriented x 3. Has somewhat decreased facial expressions consistent with Parkinson's facies. NECK: Without adenopathy or JVD. CHEST: The patient has some pain and discomfort in the right upper chest area. Palpation in the right side near the costal margins of the sternum reproduce pain and discomfort similar to that which he is complaining about. BACK: The patient has quite a bit of pain, which can radiate down into the low back area with some discomfort in the area of his kidney on the right side. HEART: Regular rate. ABDOMEN: Nontender. EXTREMITIES: Upper extremity muscle strength judged to be 4+/5 for the major muscle groups in the upper extremity. The patient without significant scoliosis or lordosis. The patient has a significant amount of kyphosis. He's basically looking down at his knees. Lower extremity muscle strength judged to be 4+/5 for the major muscle groups in the lower extremity. The patient walks with a somewhat slow and unsteady gait. IMPRESSION: 1. Right costochondritis. 2. History of colon problems. RECOMMENDATIONS: We discussed treatment options with the patient. At this juncture, we will try a conservative approach. The patient will try a Medrol Dosepak. He will take the medications as prescribed. We have discussed the possible complications with steroids, which could cause some redness of skin. Sometimes patients can have some difficulty sleeping. A script for Voltaren gel to be applied to the affected areas 4 times daily will also be provided. We may consider a oral nonsteroidal anti-inflammatory medication. We would like to thank you for letting us participate in his care. We hope he continues to improve. <ELECTRONICALLY SIGNED> By: Leroy Mccray MD 10/24/19 [id number] Leroy Mccray MD /[facility]
== END ==
LOC: PAIN 06:47
DX: M94.0 Chondrocostal junction syndrome [Tietze] (principal); M54.2 Cervicalgia; M54.5 Low back pain; Z79.899 Other long term (current) drug therapy

== ENCOUNTER → 2019-10-19 | Outpatient (CLI) | payer OTHER ==
[~2019-10-19] VITALS: Ht 175.3 cm; Wt 69.4 kg
[2019-10-19 10:52] VITALS: BP 117/66
--- NOTE | 2019-10-19 10:59 | NUR ---
Pain Clinic Assessment: 1. History of Osteoarthritis: SPINE KNEES History of Rheumatoid Arthritis: Not Applicable 2. Height: 5 ft. 9 in. 175.3 cm. Weight: 153.0 lb. oz. 69.400 kg. Patient's BMI: 22.6 3. Vital Signs: BP: 117/66 Pulse: 64 Resp: 16 Temp: 02 Sat: 100 ECG Mon: 4. Pain Intensity: 8.5 5. Fall Risk: Dizziness: N Needs help standing or walking: N Fallen in the last 3 months: N Fall risk comments: 6. Patient on Blood Thinner: None 7. History of Hypertension: N 8. Opioid Therapy greater than 6 weeks: Y Opiate Contract Signed: 9. Risk Assessment Tool Provided: LOW RISK 0 10. Functional Assessment Tool: 11. Recreational Drug Use: Never Drug Type: Tobacco Use: Never Smoker Tobacco Type: Amount or Packs/day: How Many Years: Alcohol Use: Yes Frequency: Quant:
--- NOTE | 2019-11-07 08:03 | HPC ---
[facility] [place] [address] PAIN MANAGEMENT CONSULTATION Name: GRISEL MCCONNELL Room #: REG ORI Garnica#: [id number] Admission: 10/19/19 Attend Phys: Leroy Mccray MD Discharge: Date of : 50 Report #: [id number] THIS REPORT FOR: cc: Alvarado Levy,Leroy Chang MD ~ CC: Alvarado Mccray DATE OF SERVICE: 10/19/2019 CHIEF COMPLAINT: Pain on the right side and near the ribs. HISTORY: The patient is a 69-year-old gentleman who has been seen in the pain clinic because of pain and discomfort involving his right chest area. He has had some pain and discomfort in the right shoulder on the right side. He noticed that he developed a cough. He noticed with some of coughing that he had pain and discomfort in his shoulders as well as in the right side. He noticed that his pain has been exacerbated with coughing, sneezing and with certain movements. This pain has been reproducible with deep breathing. He was provided with a script for Voltaren gel to be applied to the affected area 4 times daily. He also tried a Medrol Dosepak. He returns today indicating that his pain still is problematic. He rates it as a 7-8 out of 10, can rise to the level of 9. He has used hydrocodone. He did not find that this pain medication was very helpful. It did produce somewhat alteration of his mood. ALLERGIES: No known drug allergies. CURRENT MEDICATIONS: Rasagiline 0.5 mg, Aricept 10 mg, Colace 200 mg at bedtime, hydrocodone 7.5 mg, carbidopa/levodopa 25/100, and multivitamins. PAIN CLINIC ASSESSMENT AND PQRS: 1. The patient has some osteoarthritic changes in his spine as well as in his knees. He is not being treated for rheumatoid arthritis. 2. Height 5 feet 9 inches, weight 153 pounds, BMI is 22.6. 3. Vital signs: Blood pressure is 117/66, pulse 64, respiratory rate 16, room air saturation is 100%. 4. Pain intensity, 8.5-10. 5. Fall history. The patient has not fallen in the last 3 months. 6. Blood thinner. The patient is not on a blood thinning medication. 7. Hypertension. The patient is not being treated for hypertension. 8. Opioids greater than 6 weeks. The patient is not on an opioid regimen on a regular basis, but has used hydrocodone. 9. Risk assessment tool, low for opioid use. 10. Functional assessment tool, 35/70. 11. Recreational drug use. The patient denies. [address] [address] PAIN MANAGEMENT CONSULTATION Name: GRISEL MCCONNELL [id number] Admission: 10/19/19 Attend Phys: Leroy Mccray MD Discharge: Date of : 50 Report #: [id number] 12. Tobacco: The patient has never smoked. 13. Alcohol: The patient occasionally drinks alcoholic beverages. PHYSICAL EXAMINATION: GENERAL: The patient is a well-developed, white male. Appears his stated age. He is alert and oriented x 3. His affect is somewhat flat. He appears to have an expression consistent with Parkinson's. NECK: Without adenopathy or JVD. CHEST: The patient has some pain and discomfort in the upper right intercostal area. Palpation of the costal margins still cause some discomfort in the area of the sternum, which produces a pain similar to that which he is complaining of. The patient also has some pain and discomfort in the low back area. HEART: Regular rate. ABDOMEN: Nontender. EXTREMITIES: Upper extremity muscle strength judged to be 4+/5 for the major muscle groups in the upper extremity. The patient is without significant scoliosis or lordosis. He has a significant amount of kyphosis. He continues basically to look down at his feet while standing or sitting. Gait somewhat unsteady. IMPRESSION: 1. Right costochondritis. 2. History of colon problems. RECOMMENDATIONS: We discussed treatment options with the patient. At this juncture, we will try oxycodone. The patient feels that the hydrocodone medication cause a change in his mood. We will provide him with oxycodone 1 tablet p.o. b.i.d. If he finds that this medication is helpful, we will consider continuing the medication. May decide on another nonsteroidal anti-inflammatory medication. We would like to thank you for letting us participate in his care. We hope he continues to improve. <ELECTRONICALLY SIGNED> By: Leroy Mccray MD 11/07/19 [id number] Leroy Mccray MD /MISTY
== END ==
LOC: PAIN 07:18
DX: R07.81 Pleurodynia (principal); Z90.49 Acquired absence of other specified parts of digestive tract; M93.90 Osteochondropathy, unspecified of unspecified site; Z79.899 Other long term (current) drug therapy

== ENCOUNTER → 2020-01-23 | Outpatient (CLI) | payer OTHER ==
[~2020-01-23] VITALS: Ht 175.3 cm; Wt 67.8 kg
[2020-01-23 09:11] VITALS: BP 105/70
--- NOTE | 2020-01-23 09:19 | NUR ---
Pain Clinic Assessment: 1. History of Osteoarthritis: SPINE KNEES History of Rheumatoid Arthritis: Not Applicable 2. Height: 5 ft. 9 in. 175.3 cm. Weight: 149.4 lb. oz. 67.767 kg. Patient's BMI: 22.1 3. Vital Signs: BP: 105/70 Pulse: 70 Resp: 16 Temp: 02 Sat: 99 ECG Mon: 4. Pain Intensity: 8.5 5. Fall Risk: Dizziness: N Needs help standing or walking: N Fallen in the last 3 months: N Fall risk comments: 6. Patient on Blood Thinner: None 7. History of Hypertension: N 8. Opioid Therapy greater than 6 weeks: Y Opiate Contract Signed: 9. Risk Assessment Tool Provided: LOW RISK 0/3 10. Functional Assessment Tool: 47/70 11. Recreational Drug Use: Never Drug Type: Tobacco Use: Never Smoker Tobacco Type: Amount or Packs/day: How Many Years: Alcohol Use: Yes Frequency: Monthly Quant: 1-2
== END | disposition home or self-care (01) ==
LOC: PAIN 06:52
PROVIDERS: ATTEND Anesthesiology Pain Medicine
DX: M54.16 Radiculopathy, lumbar region (principal); G89.29 Other chronic pain; Z79.899 Other long term (current) drug therapy